=== PATIENT | male | born 1975 | race Caucasian/White ===

== ENCOUNTER → 2021-03-31 | Outpatient (CLI) | payer OTHER ==
[~2021-03-31] MED LIST: AMLODIPINE BESY10 MG PO; CATAPRES 0.1MG0.1 MG PO; COREG 25MG TAB25 MG PO; FLEXERIL 10 MG10 MG PO; IBUPROFEN800 MG PO; LISINOPRIL40 MG PO; PROVENTIL HFA 61 INH INH; ZYRTEC10 MG PO
[2021-04-01 08:13] LABS: ALPHA-1-ANTITRYPSIN, SERUM 161 mg/dL (101-187)
[2021-04-01 12:13] LABS: HBSAG SCREEN Negative (Negative); HEP A AB, IGM Negative (Negative); HEP B CORE AB, IGM Negative (Negative); HEP C VIRUS AB <0.1 (0.0-0.9); MITOCHONDRIAL (M2) ANTIBODY <20.0 Units (0.0-20.0)
== END ==
LOC: US 08:20
PROVIDERS: Internal Medicine Gastroenterology
DX: R94.5 Abnormal results of liver function studies (principal)
CPT/HCPCS: 36415; 76705; 80074; 82103; 82728; 83540; 83550; 86038

== ENCOUNTER → 2021-06-25 | Outpatient (CLI) | payer OTHER ==
[2021-06-26 08:15] LABS: ALBUMIN 4.1 g/dL (4.0-5.0); ALKALINE PHOSPHATASE 172 IU/L (44-121); ALT (SGPT) 24 IU/L (0-44); AST (SGOT) 12 IU/L (0-40); BILIRUBIN, DIRECT <0.10 mg/dL (0.00-0.40); BILIRUBIN, TOTAL 0.2 mg/dL (0.0-1.2); IMMUNOGLOBULIN G, QN, SERUM 909 mg/dL (603-1613); PROTEIN, TOTAL 6.8 g/dL (6.0-8.5)
[2021-06-26 16:13] LABS: ACTIN (SMOOTH MUSCLE) ANTIBODY 6 Units (0-19); LIVER-KIDNEY MICROSOMAL AB <1.0 Units (0.0-20.0)
== END ==
LOC: LAB 11:41
PROVIDERS: Internal Medicine Gastroenterology
DX: R94.5 Abnormal results of liver function studies (principal)
CPT/HCPCS: 36415; 80076; 82784; 83516; 86376

== ENCOUNTER 2022-02-24 21:49 | Emergency (ER) | payer OTHER ==
[2022-02-24 22:30] LABS: HEMOGLOBIN 19.3 gm/dl (14.0-17.5); RED BLOOD COUNT 6.23 M/UL (4.20-5.50); WHITE BLOOD COUNT 13.6 K/UL (4.5-11.0)
[2022-02-24 22:53] LABS: BUN/CREATININE RATIO 12 (0-10)
[2022-02-25] MEDS ORDERED: IBUPROFEN600 MG PO (02:26)
[2022-02-25] MEDS ORDERED: ZOFRAN ODT 4 MG4 MG PO (02:26)
== END 2022-02-25 03:55 | disposition home or self-care (01) ==
LOC: ER1 21:49
PROVIDERS: Emergency Medicine
DX: E11.65 Type 2 diabetes mellitus with hyperglycemia (principal); I11.9 Hypertensive heart disease without heart failure; M79.10 Myalgia, unspecified site; F17.210 Nicotine dependence, cigarettes, uncomplicated; Z79.4 Long term (current) use of insulin; Z86.73 Personal history of transient ischemic attack (TIA), and cerebral infarction without residual deficits; Z87.442 Personal history of urinary calculi; Z20.822 Contact with and (suspected) exposure to COVID-19
CPT/HCPCS: 80053; 81001; 82550; 82553; 82962; 83874; 84484; 85025; 99283; U0002